=== PATIENT | male | born 1955 | race Hispanic/Latino ===

== ENCOUNTER 2021-02-11 11:09 | Emergency (ER) | payer MEDICARE ==
[~2021-02-11] VITALS: Ht 170.2 cm; Wt 70.3 kg
[2021-02-11 11:30] VITALS: BP 128/74
[2021-02-11] MEDS ORDERED: KETOROLAC 60 MG VIAL (30MG/ML) IM ONE (12:30)
== END 2021-02-11 12:53 | disposition left against medical advice (07) ==
LOC: EDH 11:09
DX: K40.91 Unilateral inguinal hernia, without obstruction or gangrene, recurrent (principal); Z79.1 Long term (current) use of non-steroidal anti-inflammatories (NSAID)
CPT/HCPCS: 99281